=== PATIENT | male | born 1980 ===

== ENCOUNTER → 2021-08-15 | Outpatient (CLI) | payer OTHER | END | disposition home or self-care (01) | LOC: PPH VACUNA 08:00 | PROVIDERS: ATTEND Emergency Medicine Pediatric Emergency Medicine | DX: Z23 Encounter for immunization (principal) ==

== ENCOUNTER 2024-09-15 13:05 | Outpatient (CLI) | payer OTHER | END 2024-09-15 13:27 | disposition home or self-care (01) | LOC: MRI 13:05 | PROVIDERS: ATTEND Neurological Surgery | DX: M54.50 Low back pain, unspecified (principal); M48.06 Spinal stenosis, lumbar region | CPT/HCPCS: 72148 ==